=== PATIENT | female | born 1985 | race Caucasian/White ===

== ENCOUNTER 2025-01-24 09:09 | Emergency (ER) | payer MEDICAID ==
[~2025-01-24] VITALS: Ht 175.3 cm; Wt 62.6 kg
[2025-01-24 11:11] VITALS: BP 135/72; TEMP 98.5; O2SAT 99
== END 2025-01-24 11:12 | disposition home or self-care (01) ==
LOC: ER 09:19
DX: R10.9 Unspecified abdominal pain (principal); Z98.84 Bariatric surgery status; G89.4 Chronic pain syndrome; Z88.0 Allergy status to penicillin; Z88.6 Allergy status to analgesic agent